=== PATIENT | female | born 1975 | race Caucasian/White ===

== ENCOUNTER 2018-04-10 13:36 | Outpatient (CLI) | payer BC | END 2018-04-10 13:37 | disposition home or self-care (01) | LOC: BICMAMMO 13:36 | PROVIDERS: ATTEND Obstetrics & Gynecology | DX: Z12.31 Encounter for screening mammogram for malignant neoplasm of breast (principal) | CPT/HCPCS: 77063; 77067 ==

== ENCOUNTER 2018-08-27 07:00 | Outpatient (CLI) | payer BC ==
--- NOTE | 2018-08-27 07:46 | ULT ---
Exam: Right upper quadrant ultrasound: HISTORY: Right upper quadrant pain COMPARISON: None FINDINGS: Visualized liver:Unremarkable. Gallbladder:No evidence of gallstones, wall thickening, edema, or pericholecystic fluid. Common bile duct:Within normal limits. The visualized pancreas and right kidney are unremarkable. No evidence for abscess or abnormal fluid collection in the right upper quadrant. IMPRESSION: Unremarkable right upper quadrant ultrasound. No evidence of gallstones.
[2018-08-27 07:53] LABS: #Lymphocytes 1.3 thou/uL (1.20-3.40); #Monocytes 0.3 thou/uL (0.11-0.59); #Neutrophils 1.2 thou/uL (1.40-6.50); %Basophils 1.5 % (0.0-1.0); %Eosinophils 0.9 % (0.0-10.0); %Monocytes 9.6 % (0.0-10.0); Hemoglobin 11.9 g/dL (12.0-16.0); Mean Corpuscular HGB CONC 33.4 g/dL (32.0-36.0); Mean Corpuscular Hemoglobin 29.5 pg (27.0-31.0); Mean Corpuscular Volume 88.5 fL (78.0-98.0); Mean Platelet Volume 9.8 fL (7.4-10.4); Platelet Count 194 thou/uL (130-400); RBC Distribution Width 13.3 % (11.5-14.5); Red Blood Cell (RBC) Count 4.04 mill/uL (4.20-5.40); White Blood Cell (WBC) Count 2.9 thou/uL (4.8-10.8)
[2018-08-27 08:04] LABS: ALT (SGPT) 10 U/L (8-55); AST (SGOT) 15 U/L (5-34); Alkaline Phosphatase 42 U/L (40-150); Anion Gap 11 mmol/L (10-20); BUN (Urea Nitrogen) 10 mg/dL (7.0-18.7); Bilirubin, Total 1.7 mg/dL (0.2-1.2); Calc. Creatinine Clearance 0 mL/min (70-130); Calcium 9.1 mg/dL (7.8-10.44); Carbon Dioxide 30 mmol/L (22-29); Chloride 104 mmol/L (98-107); Estimated GFR-MDRD 81; Globulin 2.4 g/dL (2.4-3.5); Glucose 84 mg/dL (70-105); Protein, Total 6.4 g/dL (6.0-8.3); Sodium 141 mmol/L (136-145)
[2018-08-29 16:15] LABS: EliA Celiac New Method **** NEW METHOD ****; t-Transglutaminase (tTG) IgA 0.3 EliAU/mL (<7 Negative)
== END 2018-08-27 07:01 | disposition home or self-care (01) ==
LOC: SCSULT 07:00
PROVIDERS: ATTEND Internal Medicine Gastroenterology
DX: R10.11 Right upper quadrant pain (principal); R19.4 Change in bowel habit; R63.0 Anorexia; R19.5 Other fecal abnormalities
CPT/HCPCS: 36415; 76705; 80053; 82705; 83516; 84443; 85025

== ENCOUNTER 2018-10-21 07:29 | Outpatient (CLI) | payer BC ==
[2018-10-21] MEDS ORDERED: Iopamidol 370 76% 100 ML VIAL ONE (09:00)
--- NOTE | 2018-10-21 09:42 | CT ---
CT ABDOMEN WITH CONTRAST: Date: 10/21/18 HISTORY: 42-year-old female with right upper quadrant abdominal pain. Loss of appetite. TECHNIQUE: IV contrast: [id number]. Oral contrast: Not administered. Single venous phase scan from lung bases to iliac crests. Pelvis not included. FINDINGS: Moderate amount of colonic stool. No dilation of visualized small bowel loops. No retroperitoneal hem atoma. No free fluid identified. Normal abdominal aorta, kidneys, pancreas, adrenals, liver, and sple en. Contracted gallbladder. Lung bases are clear. No pleural effusion. Visualized portions of lumbar spine are unremarkable with no central spinal canal stenosis or scoliosis. IMPRESSION: 1. Normal CT of the upper abdomen. 2. Pelvis not included. POS: [facility]
== END 2018-10-21 07:30 | disposition home or self-care (01) ==
LOC: SCSCT 07:29
PROVIDERS: ATTEND Internal Medicine Gastroenterology
DX: R19.7 Diarrhea, unspecified (principal); R10.11 Right upper quadrant pain; R19.4 Change in bowel habit; R63.0 Anorexia; R19.5 Other fecal abnormalities
CPT/HCPCS: 74160; Q9967

== ENCOUNTER 2018-11-25 08:21 | Day surgery (SDC) | payer BC ==
[2018-11-24 16:51] VITALS: BMI 20.7
[2018-11-25 08:51] LABS: #Lymphocytes 1.2 thou/uL (1.20-3.40); #Monocytes 0.3 thou/uL (0.11-0.59); %Lymphocytes 46.6 % (21.0-51.0); %Monocytes 11.1 % (0.0-10.0); %Neutrophils 40.4 % (42.0-75.0); Hemoglobin 12.2 g/dL (12.0-16.0); Mean Corpuscular HGB CONC 33.6 g/dL (32.0-36.0); Mean Corpuscular Hemoglobin 29.5 pg (27.0-31.0); Mean Corpuscular Volume 87.7 fL (78.0-98.0); Mean Platelet Volume 8.8 fL (7.4-10.4); Platelet Count 189 thou/uL (130-400); RBC Distribution Width 12.8 % (11.5-14.5); Red Blood Cell (RBC) Count 4.15 mill/uL (4.20-5.40); White Blood Cell (WBC) Count 2.6 thou/uL (4.8-10.8)
[2018-11-25 08:57] LABS: Prothrombin Time 13.2 SEC (12.0-14.7)
[2018-11-25 08:58] LABS: PTT 31.5 SEC (22.9-36.1)
[2018-11-25 09:06] LABS: BHCG - Serum Negative (NEGATIVE); Pregs Control Background? CLEAR/WHITE (CLR/WHITE); Pregs Control Bar Appear? YES (CONTROL BAR)
[2018-11-25 10:02] VITALS: BP 89/65; TEMP 97.7
--- NOTE | 2018-11-25 14:07 | CT ---
CT GUIDED RIGHT ILIAC BONE MARROW ASPIRATION AND BIOPSY: CLINICAL HISTORY: Decreased white blood cell count. PROCEDURE: The procedure including the risks and complications were explained to the patient, and inf ormed consent was obtained. The patient was placed on the CT scan table in the prone position. Conscious sedation for a total of 30 minutes was performed, administered by the radiology nurse, with the patient consistently monitored throughout the duration of the exam in stable condition. Noncontrasted CT images were obtained through the pelvis. An area was marked overlying the right meg c bone, and the area was meticulously prepped and draped in usual sterile fashion. The skin and subcutaneous tissues were infiltrated with buffered 1% lidocaine for local anesthesia. After a small skin incision was made, an 11-gauge needle was advanced and positioning was confirmed with axial CT images. Approximately 8 milliliters of bone marrow aspirate was obtained. The needle was then further advanced, and a bone marrow biopsy was performed. The needle was removed, and hemostasis was achieved with direct pressure. The patient tolerated the procedure well and without immediate complic ation. The patient was transported to radiology nurses holding area for further monitoring prior to discharge. IMPRESSION: Technically successful percutaneous right iliac bone marrow aspiration and biopsy. Pathol ogy results are pending. Transcribed Date/Time: 11/25/2018 2:07 PM
== END 2018-11-25 12:05 | disposition home or self-care (01) ==
LOC: CT 08:21
PROVIDERS: ATTEND Internal Medicine Hematology & Oncology
PROC: 079T3ZX Drainage of Bone Marrow, Percutaneous Approach, Diagnostic (ICD-10-PCS; principal; 2018-11-25)
PROC: 07DR3ZX Extraction of Iliac Bone Marrow, Percutaneous Approach, Diagnostic (ICD-10-PCS; principal; 2018-11-25)
DX: D72.818 Other decreased white blood cell count (principal); G43.909 Migraine, unspecified, not intractable, without status migrainosus; Z79.899 Other long term (current) drug therapy; Z88.0 Allergy status to penicillin; Z88.8 Allergy status to other drugs, medicaments and biological substances
CPT/HCPCS: 20225; 36415; 77012; 84703; 85025; 85097; 85610; 85730; 88184; 88237; 88305; 88311; 88313; 88341; 88342